=== PATIENT | male | born 1950 | race Caucasian/White ===

== ENCOUNTER 2018-12-22 08:33 | Emergency (ER) | payer MEDICARE ==
[2018-12-22 08:36] VITALS: BMI 26.5
[2018-12-22] MEDS ORDERED: FENOFIBRATE160 MG PO (08:39)
[2018-12-22] MEDS ORDERED: LISINOPRIL5 MG PO (08:39)
[2018-12-22] MEDS ORDERED: OMEPRAZOLE40 MG PO (08:40)
[2018-12-22] MEDS ORDERED: XARELTO20 MG PO (08:40)
[2018-12-22] MEDS ORDERED: TOPROL XL25 MG PO (08:40)
[2018-12-22 09:21] LABS: BASOPHILS 0.1 % (0-2); EOSINOPHILS 0.1 % (0-7); HEMATOCRIT 35.3 % (42.0-54.0); HEMOGLOBIN 12.1 g/dL (13.5-17.5); LYMPHOCYTES 3.2 % (15-50); MCH 31.4 pg (26.0-34.0); MCHC 34.3 g/dL (31.0-37.0); MCV 91.7 fL (80.0-100.0); MEAN PLATELET VOLUME 10.4 fL (7.4-10.4); MONOCYTES 12.9 % (2-11); NEUTROPHILS 82.7 % (40-80); PLATELET COUNT 276 10x3/uL (130-400); RBC 3.85 10x6/uL (4.20-6.10); RDW 12.4 % (11.5-14.5); WBC 15.7 10x3/uL (4.8-10.8)
[2018-12-22 09:33] LABS: ALBUMIN 2.4 g/dL (3.4-5.0); ALKALINE PHOSPHATASE 58 U/L (46-116); ALT (SGPT) 23 U/L (10-68); BILIRUBIN - TOTAL 1.67 mg/dL (0.2-1.3); CALC OSMOLALITY 272 mosm/kg (275-300); CALCIUM 8.5 mg/dL (8.5-10.1); CARBON DIOXIDE 28.9 mmol/L (21.0-32.0); CHLORIDE - SERUM 96 mmol/L (98-107); CREATININE - SERUM 1.3 mg/dL (0.6-1.3); GLUCOSE 155 mg/dL (74-106); POTASSIUM - SERUM 3.3 mmol/L (3.5-5.1); PROTEIN - SERUM 7.3 g/dL (6.4-8.2); SODIUM 134 mmol/L (136-145); UREA NITROGEN 17 mg/dL (7-18); eGFR NON AFRICAN AMERICAN 58 mL/min (90-120)
[2018-12-22 09:44] LABS: CKMB 0.4 U/L (0.0-3.6); CREATINE KINASE 93 UL (21-232); TROPONIN-I < 0.017 ng/mL (0.000-0.060)
[2018-12-22] MEDS ORDERED: LEVAQUIN750 MG PO (10:08)
[2018-12-22 11:20] VITALS: BP 134/93
== END 2018-12-22 11:21 | disposition home or self-care (01) ==
LOC: D.ER 08:33
PROVIDERS: Emergency Medicine
DX: R07.9 Chest pain, unspecified (principal); D64.9 Anemia, unspecified; R50.9 Fever, unspecified; E87.6 Hypokalemia; J18.9 Pneumonia, unspecified organism; I48.91 Unspecified atrial fibrillation